=== PATIENT | male | born 1970 | race Two or more races ===

== ENCOUNTER 2022-04-27 08:16 | Emergency (ER) | payer OTHER ==
[~2022-04-27] VITALS: Ht 180.3 cm; Wt 98.4 kg
[2022-04-27] MEDS ORDERED: KETO10TA2 PO (11:19)
[2022-04-27] MEDS ORDERED: NORFLEX100MG PO (11:19)
== END 2022-04-27 11:26 | disposition home or self-care (01) ==
LOC: ER 08:16
DX: M54.50 Low back pain, unspecified (principal)

== ENCOUNTER 2023-10-26 16:30 | Outpatient (CLI) | payer OTHER ==
[~2023-10-26 16:30] MED LIST: KETO10TA2 PO; NORFLEX100MG PO
== END 2023-10-26 16:38 | disposition home or self-care (01) ==
LOC: RAD 16:30
PROVIDERS: ATTEND General Practice
DX: M26.602 Left temporomandibular joint disorder, unspecified (principal)

== ENCOUNTER 2023-10-31 14:08 | Outpatient (CLI) | payer OTHER | END 2023-10-31 14:16 | disposition home or self-care (01) | LOC: RAD 14:08 | PROVIDERS: ATTEND General Practice | DX: J32.9 Chronic sinusitis, unspecified (principal) ==

== ENCOUNTER 2025-01-21 08:57 | Outpatient (CLI) | payer OTHER | END 2025-01-21 08:59 | disposition home or self-care (01) | LOC: RAD 08:57 | PROVIDERS: ATTEND Urology | DX: N40.0 Benign prostatic hyperplasia without lower urinary tract symptoms (principal); R31.21 Asymptomatic microscopic hematuria ==